=== PATIENT | female | born 1955 | race Caucasian/White ===

== ENCOUNTER 2017-06-09 18:19 | Emergency (ER) | payer OTHER ==
--- NOTE | 2017-06-09 22:17 | DIAGNOSTIC IMAGING REPORT ---
PROCEDURE: XR CHEST 1 VIEW INDICATION: CHEST PAIN TECHNIQUE: Portable AP view (2010 hours). COMPARISON: None. FINDINGS: Mild right basilar subsegmental atelectasis (findings accentuated due to suboptimal inspiration). Left lung is clear. Heart and mediastinum are normal. Thorax is normal. IMPRESSION: 1. Allowing for suboptimal inspiration, there is mild right basilar subsegmental atelectasis. 2. Otherwise negative chest.
--- NOTE | 2017-06-09 22:19 | DIAGNOSTIC IMAGING REPORT ---
PROCEDURE: US ABDOMEN ULTRASOUND-LIMITED INDICATION: RUQ PAIN TECHNIQUE: Burns scale and color Doppler sonographic images of the abdomen were obtained. COMPARISON: Compared to abdominal ultrasound 05/18/2016. FINDINGS: Gallbladder and common duct are normal (6 mm). No evidence of gallstones. Portions of the liver, pancreas, aorta, inferior vena cava, and right kidney are seen, and are normal. IMPRESSION: 1. Negative ultrasound of the gallbladder and right upper quadrant.
--- NOTE | 2017-06-09 22:29 | DIAGNOSTIC IMAGING REPORT ---
PROCEDURE: CT ABD/PELVIS WITH CONTRAST INDICATION: Right abdominal pain. Negative gallbladder ultrasound. History of appendectomy, hysterectomy, and oophorectomy. TECHNIQUE: 75 ml of Isovue 300 were injected intravenously and axial images were obtained of the entire abdomen and pelvis with sagittal and coronal reformations. One half-dose of contrast utilized due to compromised renal status (GFR 44, BUN 23, creatinine 1.3). COMPARISON: Comparison is made to abdominal ultrasound earlier today (06/09/2017). FINDINGS: ABDOMEN: There is marked abnormal heterogeneous enhancement right kidney. Right kidney is mildly prominent (12.0 cm), but there is no evidence of hydronephrosis. Left kidney is of normal size (10.7 cm) with multiple parapelvic cyst. No evidence of hydronephrosis. Gallbladder, liver, spleen (11.4 cm), pancreas, are normal. Mild calcified atheromatous changes of the aorta. Bowel pattern is normal. Mild levoscoliosis with moderate to marked degenerative changes of the lower lumbar spine. Mild volume loss at the lung bases PELVIS: Status post hysterectomy. Trace free fluid the pelvis. Mild sigmoid diverticulosis, but no evidence of diverticulitis. IMPRESSION: 1. Marked abnormal heterogeneous enhancement right kidney compatible with pyelonephritis. 2. Status post hysterectomy. 3. Mild levoscoliosis and moderate to marked degenerative changes of the lower lumbar spine. 4. Trace free fluid the pelvis. 5. Mild sigmoid diverticulosis, but no evidence of diverticulitis. 6. Findings discussed with Dr. Dane Boggs. All CT scans at this facility use dose modulation, iterative reconstruction, and/or weight-based dosing when appropriate to reduce radiation dose to as low as reasonably achievable.
--- NOTE | 2017-06-09 23:07 | ED NURSING NOTES ---
Clinical Report - Nurses [address] [place] [place] [address] 06/09/2017 18:20 [id number] Triage time 18:22. Acuity: LEVEL 3. Chief Complaint: CHEST PAIN. Alert. No acute distress. PATRICIA COMA SCORE: King Coma Scale: 15- eyes open spontaneously (4); best verbal response- oriented x 4 (5); best motor response- obeys commands (6). --18:40 Estefany Bowling R.N. 18:22 06/09/17. BP: 147/74. HR: 87. RR: 18. O2 saturation: 97% on room air. Temp: 98.2 F (oral). Pain level now: 8/10. --18:40 Estefany Bowling R.N. Weight: 84.3 kg stated. Height/Length: 64 inches Per Patient. BMI: 31.9. --18:31 Estefany Bowling R.N. Medications Albuterol Sulfate HFA Inhalation (Aerosol Solution 108 (90 Base) mcg/act), as needed. --18:33 Estefany Bowling R.N. Tessalon Perles Oral (Capsule 100 mg), 3x a day as needed. --18:34 Estefany Bowling R.N. Budesonide ER Oral. --18:34 Estefany Bowling R.N. Budesonide aresol powder 2 puffs, 2x a day. --18:35 Estefany Bowling R.N. Cetirizine HCl Oral 10 mg, daily. --18:36 Estefany Bowling R.N. Cimetidine Oral. --18:36 Estefany Bowling R.N. Fluticasone Propionate Nasal (Suspension 50 mcg/act), daily. --18:37 Estefany Bowling R.N. Naproxen Oral (Tablet 500 mg) 1 tablet, 2x a day as needed. --18:38 Estefany Bowling R.N. Sertraline HCl Oral (Tablet 100 mg) 1 tablet, daily. --18:38 Estefany Bowling R.N. TraZODone HCl Oral (Tablet 100 mg) 0.5-1.5 tabs, at bedtime. --18:39 Estefany Bowling R.N. Triamcinolone Acetonide External, 2x a day. --18:39 Estefany Bowling R.N. Medication/allergy information source: other. --18:40 Estefany Bowling R.N. Allergies Codeine. Morphine and Related. --18:26 Estefany Bowling R.N. History Arrived by private vehicle. Historian: patient. Accompanied by family. Primary physician (Renee). ( has apt on Monday). Onset. (about 1 week). Describes the quality as (intermittent, "just started on the way up here"). Relates location as in the central chest area and epigastric area. Notes pain level as 5/10 on arrival. Provoking / relieving factors: not worsened by anything. Relieved by nothing. ( has been vomiting for a week). The patient has had nausea and vomiting. No difficulty breathing or sweating episodes. SOCIAL HX: Never smoker. Occasional alcohol use. No drug use. LEARNING NEEDS ASSESSMENT: The learning needs assessment revealed no barriers. FALL RISK ASSESSMENT: Fall risk assessment completed. Risk factors identified include patient impairment of mobility. Fall interventions initiated. Patient placed on stretcher. Side rails up x2. Brakes on Bed in low position. FUNCTIONAL ASSESSMENT: Functional assessment performed: requires assistance with the activities of daily living. --18:40 Estefany Bowling R.N. PROBLEMS: Asthma. Allergic Rhinitis. --18:27 Estefany Bowling R.N. Labrynthitis. --18:32 Estefany Bowling R.N. ADDITIONAL SURGERIES: Appendectomy. Back Surgery. --18:28 Estefany Bowling R.N. Carpal Tunnel Surgery. Eye. --18:30 Estefany Bowling R.N. Hysterectomy. Oophorectomy. --23:17 Jose Alberto Mendoza R.N. Assessment GENERAL / NEURO / PSYCH: Alert. Oriented X 4. Appears in no acute distress. Patient appears calm and cooperative. RESPIRATORY: Respirations not labored. SKIN: Skin is warm and dry. --18:40 Estefany Bowling R.N. Interventions ID and allergy band on patient. To treatment room. --18:40 Estefany Bowling R.N. PHYSICAL ASSESSMENT 18:44 06/09/17. To room via wheelchair. Patient gowned. GENERAL / NEURO / PSYCH: Alert. Oriented X 4. Appears in no acute distress. RESPIRATORY: Respirations not labored. CVS: Cardiac rhythm: sinus rhythm. SKIN: Skin is warm and dry. --18:44 Estefany Bowling R.N. NURSING PROGRESS NOTES EKG time: (1827). EKG was ordered, performed by a tech and shown to the ED physician. --18:43 Shahla Portillo 18:44 06/09/17. night monitor, pulse oximeter and NIBP monitor placed on patient. Patient gowned. Head of bed elevated. Call light placed in reach. Side rails up x 1. Bed placed in lowest position. Brakes of bed on. --18:44 Estefany Bowling R.N. 19:20 06/09/2017 Site #1 started via IV in the right forearm with an 20g angiocath, with aseptic technique and good blood return; one attempt. Blood drawn: rainbow set. Labeled in the presence of the patient and sent to the lab. Saline lock flushed with 10 mL saline. --19:20 Estefany Bowling R.N. 19:20 06/09/17. The patient is calm. Overall patient status is the same- she states feels the same (skin is clammy). RESPIRATORY: No respiratory distress. CVS: Cardiac rhythm: sinus rhythm. SKIN: Skin is warm. --19:20 Estefany Bowling R.N. 19:21 06/09/17. Care transferred and report given (Jose Alberto RIVERA). --19:21 Estefany Bowling R.N. 19:39 06/09/2017 Zofran (Ondansetron HCl) IVP 4 mg given over 2 minute(s) via site #1. Allergies verified and confirmed 5 rights. IV patency established. IV site checked: no pain, redness, or swelling. IV flushed thoroughly pre- and post-medication administration. --19:42 Jose Alberto Mendoza R.N. 19:43 06/09/17. BP: 119/77. HR: 75. RR: 16. O2 saturation: 97% on room air. --19:43 Jose Alberto Mendoza R.N. Cardiac rhythm: normal sinus rhythm. The patient is calm and resting quietly. RESPIRATORY: No respiratory distress. SKIN: Skin is warm and dry. Skin color within normal limits. --19:43 Jose Alberto Mendoza R.N. 19:55. Patient ID band checked for patient name and birthdate: patient confirmed. Clean catch urine collected with return of yellow-colored florina-colored cloudy urine; sample sent to lab for urinalysis. Specimen labeled in the presence of the patient. --20:01 Jose Alberto Mendoza R.N. 20:07. Portable chest x-ray performed. --20:07 Jose Alberto Mendoza R.N. Patient ID band checked for patient name and birthdate: patient confirmed. Blood samples drawn from the right forearm peripheral IV site with syringe by nurse ; labeled in presence of the patient and sent to lab: blood culture (1st set). Initial blood discarded and additional blood sent to lab. Line flushed with 10 mL normal saline post blood draw. --20:20 Jose Alberto Mendoza R.N. 20:20 06/09/2017 Started bag #1 1000 mL IV Fluids IV NS (Saline); at 150 mL/hr over 4 hour(s) via site #1 via IV pump. --20:20 Jose Alberto Mendoza R.N. 21:29. Patient transported to [place] by stretcher with tech. --21:40 Jose Alberto Mendoza R.N. 21:59 06/09/2017 Started 2 gm of Rocephin (CefTRIAXone Sodium) IVPB in bag #1 50 mL; at 150 mL/hr over 20 minute(s) via site #1 via IV pump. Allergies verified and confirmed 5 rights. IV patency established. IV site checked: no pain, redness, or swelling. IV flushed thoroughly pre- and post-medication administration. --21:59 Jose Alberto Mendoza R.N. 21:56. Patient returned from [place] by stretcher with tech. --21:59 Jose Alberto Mendoza R.N. 22:21 06/09/2017 Rocephin IVPB Discontinued: bag #1 infused. Total amount infused: 50 mL. IV patency established. IV site checked: no pain, redness, or swelling. IV flushed thoroughly. --23:10 Jose Alberto Mendoza R.N. 23:34. The patient is calm and resting quietly. RESPIRATORY: No respiratory distress. SKIN: Skin is warm and dry. Skin color within normal limits. --23:43 Jose Alberto Mendoza R.N. DISPOSITION / DISCHARGE 23:28 06/09/2017 IV Fluids IV NS Discontinued: bag #1 STOPPED upon discharge. Total amount infused: 400 mL. IV patency established. IV site checked: no pain, redness, or swelling. IV flushed thoroughly. --23:42 Jose Alberto Mendoza R.N. 23:31 06/09/2017 Site #1 removed upon discharge. Catheter intact. Bandage applied. --23:42 Jose Alberto Mendoza R.N. Departure time: 23:35. Condition at departure: stable. No learning barriers present. Discharge instructions provided and reviewed with the patient and family. Reviewed medication(s) side effects, precautions, dosing and course information. Prescription(s) given to the patient. Patient and family verbalized understanding. Written instructions provided in [facility]. The patient was discharged home and accompanied by family. She left the Emergency Department ambulatory and via private vehicle. Family member driving. FALL RISK ASSESSMENT: Fall risk assessment completed. No fall risk identified. --23:43 Jose Alberto Mendoza R.N. 23:10 06/09/17. BP: 114/74. HR: 71. RR: 16. O2 saturation: 96% on room air. Pain level now: 01/27. --23:43 Jose Alberto Mendoza R.N. Locked/Released at 06/10/2017 0:02 by Jose Alberto Mendoza R.N.
--- NOTE | 2017-06-09 23:07 | ED CLINICAL REPORT ---
Clinical Report - Physicians/Mid Levels [facility] [address] [place] [address] 06/09/2017 18:20 [id number] Time Seen: 18:54 Jun 09 2017. Arrived- By private vehicle. Historian- patient. HISTORY OF PRESENT ILLNESS Chief Complaint: UPPER ABDOMINAL PAIN and INDIGESTION vomiting. At its maximum, severity described as moderate. When seen in the E.D., it was gone. Modifying factors. Not worsened by anything. Not relieved by anything. This started 19:03 Jun 09 2017; Onset. (about 1 week). Describes the quality as (intermittent, "just started on the way up here"). Relates location as in the central chest area and epigastric area. Notes pain level as 5/10 on arrival. Provoking / relieving factors: not worsened by anything. Relieved by nothing. ( has been vomiting for a week). The patient has had nausea and vomiting. No difficulty breathing or sweating episodes. and is now gone. Onset during rest; Was riding in the car to the ER and felt it was an anxiety attack. It is described as burning and it is described as located in the central chest area. The patient has had nausea and vomiting. No difficulty breathing or diaphoresis. Similar symptoms previously: As bad. Diagnosis: anxiety. Recent medical care: Not recently seen/assessed. REVIEW OF SYSTEMS No fever, chills, cough, pedal edema or calf pain. Had rigors at night twice this past week. Does not know if she had a fever. Has had vomiting for the past week with intermittent right upper quadrant pain. She has had back pain associated with this as well. Son states that she is to come progressively weaker due to poor by mouth intake and cannot manage ambulating by herself or trying to go up the stairs. She's developed significant weakness in this time. Patient has had intermittent diarrhea and constipation associated with her irritable bowel syndrome. No blood in the stool no blood in the emesis. She has had her appendix out but still does have her gallbladder. Denies any problems with her gallbladder in the past. Said no other abdominal procedures that she can remember. All systems otherwise negative, except as recorded above. PAST HISTORY Asthma. Allergic Rhinitis. Labrynthitis. . ADDITIONAL SURGERIES: Appendectomy. Back Surgery. -. Carpal Tunnel Surgery. Eye. Medications: Triamcinolone Acetonide External, 2x a day. TraZODone HCl Oral (Tablet 100 mg) 0.5-1.5 tabs, at bedtime. Sertraline HCl Oral (Tablet 100 mg) 1 tablet, daily. Naproxen Oral (Tablet 500 mg) 1 tablet, 2x a day as needed. Fluticasone Propionate Nasal (Suspension 50 mcg/act), daily. Cimetidine Oral. Cetirizine HCl Oral 10 mg, daily. Budesonide aresol powder 2 puffs, 2x a day. Budesonide ER Oral. Tessalon Perles Oral (Capsule 100 mg), 3x a day as needed. Albuterol Sulfate HFA Inhalation (Aerosol Solution 108 (90 Base) mcg/act), as needed. Allergies: Codeine. Morphine and Related. SOCIAL HISTORY Never smoker. Occasional alcohol use. No drug use. ADDITIONAL NOTES The nursing notes have been reviewed. PHYSICAL EXAM Vital Signs: 06/09/2017 18:22 BP: 147/74. HR: 87. RR: 18. O2 saturation: 97%. Temp: 98.2 F. Pain level now: 8/10. Appearance: Alert. Anxious. Patient in mild distress. Eyes: Pupils equal, round and reactive to light. Eyes normal inspection. ENT: Ears normal. Nose normal. Dry mucous membranes present. Neck: Normal inspection. CVS: Normal heart rate and rhythm. 2/6 mid systolic murmur. Heart sounds normal. Pulses normal. Respiratory: No respiratory distress. Breath sounds normal. Chest nontender. Abdomen: Soft. Moderate tenderness in the right upper quadrant and right side of the abdomen. Abnormal bowel sounds: diminished. Back: Normal external inspection. No CVA tenderness. Skin: Skin warm. Normal skin color. No rash. Extremities: Extremities exhibit normal ROM. No lower extremity edema. Neuro: Oriented X 3. No motor deficit. No sensory deficit. LABS, X-RAYS, AND EKG EKG: Normal sinus rhythm. Normal P waves. Normal JUSTIN. Normal QRS complex. Normal axis. Normal ST and T waves. Prior EKG unavailable. The study has been interpreted contemporaneously. The study has been independently viewed by me. The EKG appears to be a good tracing. Abdominal CT: 1. Marked abnormal heterogeneous enhancement right kidney compatible with pyelonephritis. 2. Status post hysterectomy. 3. Mild levoscoliosis and moderate to marked degenerative changes of the lower lumbar spine. 4. Trace free fluid the pelvis. 5. Mild sigmoid diverticulosis, but no evidence of diverticulitis. Abdominal CT performed with IV contrast. The study was interpreted by the radiologist and discussed with the radiologist. Abdominal Sonogram: Normal study. Laboratory Tests: UA-Culture if indicated: (JIM: 06/09/2017 19:55) ( MsgRcvd 06/09/2017 20:12) Final results Test Result Flag Units (Reference) URINE COLOR YELLOW URINE APPEARANCE SL CLOUDY URINE GLUCOSE NEGATIVE (NEGATIVE) URINE BILIRUBIN ICTOTEST NEGATIVE (NEGATIVE) URINE KETONE NEGATIVE (NEGATIVE) URINE SPECIFIC GRAVITY 1.020 (1.010-1.030) URINE PH 5.5 (5.0-8.0) URINE PROTEIN 1+ (NEGATIVE) URINE UROBILINOGEN 0.2 EU/dL (0.2-1.0) URINE NITRITE POSITIVE (NEGATIVE) URINE BLOOD 2+ (NEGATIVE) URINE LEUK ESTERASE POSITIVE (NEGATIVE) URINE RBC NONE SEEN rbc/hpf (0-1) URINE WBC >100 wbc/hpf (0-1) URINE EPITHELIAL CELLS 3-5 EPI/hpf (0-5) URINE BACTERIA MANY (4+) (NONE SEEN) URINE COMMENT CULTURE INDICATED URINE CULTURES ARE SET-UP BASED ON THE FOLLOWING CRITERIA:POSITIVE NITRITEPOSITIVE LEUKOCYTE ESTERASEGREATER THAN 10 WHITE BLOOD CELLSMODERATE (2+) OR GREATER BACTERIA CBC w Diff: (JIM: 06/09/2017 18:50) ( [facility] Final results Test Result Flag Units (Reference) WHITE BLOOD COUNT 8.2 K/uL (4.5-11.5) RED BLOOD COUNT 4.38 M/uL (4.00-5.20) HEMOGLOBIN 13.1 gm/dL (12.0-16.0) HEMATOCRIT 38.5 % (36.0-46.0) MEAN CELL VOLUME 88 fL (80-100) MEAN CORPUSCULAR HGB 30 pg (26-34) MEAN CORPUSCULAR HGB CONC 34 g/dL (31-37) RED CELL DISTRIBUTION WIDTH 14.2 % (11.6-14.8) PLATELET COUNT 185 K/uL (150-400) NEUTROPHIL % 81.4 H % (50-75) LYMPH % 10.5 L % (25-40) MONO % 7.6 % (3-14) EOSINOPHIL % 0.5 % (0-4) BASOPHIL % 0 % (0-2) CHEM 13 PANEL: (JIM: 06/09/2017 18:50) ( MsgRcvd 06/09/2017 19:56) Final results Test Result Flag Units (Reference) GLUCOSE 90 mg/dL (70-110) BUN 23 H mg/dL (7-18) CREATININE 1.3 mg/dL (0.6-1.3) Estimated GFR 44.11 mL/min Estimated GFR- 53.46 mL/min Note: Persistent reduction over 3 months in eGFR<60 mL/min/1.73 m2 defines CKD. Patients with eGFR values>=60 mL/min/1.73 m2 may also have CKD if evidence ofpersistent proteinuria. Additional information may be foundat www.kidney.org. SODIUM 141 mmol/L (136-145) POTASSIUM 3.3 L mmol/L (3.5-5.1) CHLORIDE 105 mmol/L (98-107) CARBON DIOXIDE 24 mmol/L (21-32) CALCIUM 10.3 H mg/dL (8.5-10.1) TOTAL PROTEIN 6.7 g/dL (6.4-8.2) ALBUMIN 2.6 L g/dL (3.3-5.0) BILIRUBIN, TOTAL 1.0 mg/dL (0.0-1.0) ALKALINE PHOSPHATASE 219 H U/L (46-116) AST (SGOT) 40 H U/L (15-37) ALT (SGPT) 46 U/L (12-78) MAGNESIUM 2.0 mg/dL (1.8-2.4) CPK 20 L U/L (24-260) TROPONIN I <0.05 L ng/mL (0.00-1.5) TROPONIN REFERENCE RANGE:<0.1 NEGATIVE0.1-1.5 INDETERMINANT>1.5 POSITIVE . PROGRESS AND PROCEDURES Course of Care: Heplock Zofran 4 mg IV Patient is stable. Symptoms better. 21:51 06/09/17. US negative CT pending Discussed with Dr Boggs who will assume care due to change of shift. Disposition: Discharged home in good and improved condition. Condition: good. CLINICAL IMPRESSION Acute pyelonephritis INSTRUCTIONS Your Current Medications: CONTINUE TAKING THE FOLLOWING MEDICATIONS: Albuterol Sulfate HFA Inhalation : Aerosol Solution 108 (90 Base) mcg/act, prn. Budesonide aresol powder* : 2 puffs 2x a day. Budesonide ER Oral. Cetirizine HCl Oral : 10 mg daily. Cimetidine Oral. Fluticasone Propionate Nasal : Suspension 50 mcg/act, daily. Naproxen Oral : Tablet 500 mg, 1 tablet 2x a day, prn. Sertraline HCl Oral : Tablet 100 mg, 1 tablet daily. Tessalon Perles Oral : Capsule 100 mg, 3x a day, prn. TraZODone HCl Oral : Tablet 100 mg, 0.5-1.5 tabs at bedtime. Triamcinolone Acetonide External : 2x a day. Prescription Medications: Zofran (orally disintegrating tablets) 4 mg: take 1 orally every 6 hours as needed for nausea and vomiting. Dispense ten (10). Substitution is permissible. Suprax 400 mg: take 1 tab orally every day. No refills. Substitution is permissible. (for 14 days) Follow-up: Follow up with your doctor in about three days. Call for an appointment. Screening today revealed the patient's blood pressure to be in the normal range. (Electronically signed by Dane Boggs Dr. 06/10/2017 2:25)
--- NOTE | 2017-06-09 23:07 | ED ORDER SUMMARY ---
..... Patient: CADY COOMBS OrderSheet [facility] VisitID: [id number] [place] [address] 61y, F Registration Date/Time: 06/09/2017 ORDER SHEET Weight: 84.3 kg (stated) Allergies: Codeine, Morphine and Related GENERAL ORDERS: Blood Culture (No) (N/A) Urgent (19:37 06/09/2017 Sylvia DURAN) (Ack 19:39 [facility] Nurse) (20:20 JQuivey R.N.) Chest 1V Urgent (19:37 06/09/2017 Sylvia DURAN) (Ack 19:39 [facility] Nurse) (20:20 JQuivey R.N.) T[employer] Printer [employer] Tagger (Continuous) (19:38 06/09/2017 Sylvia DURAN) (Ack 19:39 [facility]) (19:41 JQuivey R.N.) Cardiac Panel Stat (19:38 06/09/2017 Sylvia DURAN) (Ack 19:39 [facility]) (19:42 JQuivey R.N.) UA-Culture if indicated Urgent (19:38 06/09/2017 Sylvia DURAN) (Ack 19:39 [facility]) (20:07 JQuivey R.N.) EKG - ER Stat (19:38 06/09/2017 Sylvia DURAN) (Ack 19:39 [facility] Nurse) (19:42 JQuivey R.N.) (19:42 [facility] Nurse) Pulse oximeter (19:38 06/09/2017 Sylvia DURAN) (Ack 19:39 [facility]) (19:41 JQuivey R.N.) US Abdomen Limited (Yes) Urgent (19:51 06/09/2017 Sylvia DURAN) (Ack 19:56 [facility]) (21:50 JQuivey R.N.) (21:50 [facility] Nurse) CT Abd/Pel w Cont (No) (pending) Urgent (19:51 06/09/2017 Sylvia DURAN) (Ack 19:56 [facility]) (21:58 JQuivey R.N.) Lactate, Serum Urgent (20:53 06/09/2017 Sylvia DURAN) (Ack 21:00 [facility] Nurse) (21:58 JQuivey R.N.) MEDICATION ORDERS: IV FLUIDS: Zofran IV 4 mg (NOW) (19:37 06/09/2017 Sylvia DURAN) (Ack 19:37 JQuivey R.N.) (19:42 JQuivey R.N.) IV Saline Lock (19:38 06/09/2017 Sylvia DURAN) (19:42 JQuivegabi R.N.) IV NS : initial bolus none -, then 150 mL/hr for 4h (NOW); Routine (20:03 06/09/2017 Sylvia DURAN) (20:20 JQuivey R.N.) Rocephin IV 2 gm/50mL (NOW) (20:53 06/09/2017 Sylvia DURAN) (Ack 21:35 JQuivey R.N.) (21:59 JQuivey R.N.) ORDER SHEET NOTES: [Electronically signed by Jose Alberto Mendoza R.N. (00:02 06/10/2017)] [Electronically signed by Dane Boggs Dr. (02:25 06/10/2017)] [Electronically locked/signed by Jose Alberto Mendoza R.N. (00:02 06/10/2017)]
--- NOTE | 2017-06-09 23:07 | ED NURSING NOTES ---
Clinical Report - Nurses [address] [place] [address] 06/09/2017 18:20 [id number] Triage time 18:22. Acuity: LEVEL 3. Chief Complaint: CHEST PAIN. Alert. No acute distress. PATRICIA COMA SCORE: [place] Coma Scale: 15- eyes open spontaneously (4); best verbal response- oriented x 4 (5); best motor response- obeys commands (6). --18:40 Estefany Bowling R.N. 18:22 06/09/17. BP: 147/74. HR: 87. RR: 18. O2 saturation: 97% on room air. Temp: 98.2 F (oral). Pain level now: 8/10. --18:40 Estefany Bowling R.N. Weight: 84.3 kg stated. Height/Length: 64 inches Per Patient. BMI: 31.9. --18:31 Estefany Bowling R.N. Medications Albuterol Sulfate HFA Inhalation (Aerosol Solution 108 (90 Base) mcg/act), as needed. --18:33 Estefany Bowling R.N. Tessalon Perles Oral (Capsule 100 mg), 3x a day as needed. --18:34 Estefany Bowling R.N. Budesonide ER Oral. --18:34 Estefany Bowling R.N. Budesonide aresol powder 2 puffs, 2x a day. --18:35 Estefany Bowling R.N. Cetirizine HCl Oral 10 mg, daily. --18:36 Estefany Bowling R.N. Cimetidine Oral. --18:36 Estefany Bowling R.N. Fluticasone Propionate Nasal (Suspension 50 mcg/act), daily. --18:37 Estefany Bowling R.N. Naproxen Oral (Tablet 500 mg) 1 tablet, 2x a day as needed. --18:38 Estefany Bowling R.N. Sertraline HCl Oral (Tablet 100 mg) 1 tablet, daily. --18:38 Estefany Bowling R.N. TraZODone HCl Oral (Tablet 100 mg) 0.5-1.5 tabs, at bedtime. --18:39 Estefany Bowling R.N. Triamcinolone Acetonide External, 2x a day. --18:39 Estefany Bowling R.N. Medication/allergy information source: other. --18:40 Esetfany Bowling R.N. Allergies Codeine. Morphine and Related. --18:26 Estefany Bowling R.N. History Arrived by private vehicle. Historian: patient. Accompanied by family. Primary physician (Renee). ( has apt on Monday). Onset. (about 1 week). Describes the quality as (intermittent, "just started on the way up here"). Relates location as in the central chest area and epigastric area. Notes pain level as 5/10 on arrival. Provoking / relieving factors: not worsened by anything. Relieved by nothing. ( has been vomiting for a week). The patient has had nausea and vomiting. No difficulty breathing or sweating episodes. SOCIAL HX: Never smoker. Occasional alcohol use. No drug use. LEARNING NEEDS ASSESSMENT: The learning needs assessment revealed no barriers. FALL RISK ASSESSMENT: Fall risk assessment completed. Risk factors identified include patient impairment of mobility. Fall interventions initiated. Patient placed on stretcher. Side rails up x2. Brakes on Bed in low position. FUNCTIONAL ASSESSMENT: Functional assessment performed: requires assistance with the activities of daily living. --18:40 Estefany Bowling R.N. PROBLEMS: Asthma. Allergic Rhinitis. --18:27 Estefany Bowling R.N. Labrynthitis. --18:32 Estefany Bowling R.N. ADDITIONAL SURGERIES: Appendectomy. Back Surgery. --18:28 Estefany Bowling R.N. Carpal Tunnel Surgery. Eye. --18:30 Estefany Bowling R.N. Hysterectomy. Oophorectomy. --23:17 Jose Alberto Mendoza R.N. Assessment GENERAL / NEURO / PSYCH: Alert. Oriented X 4. Appears in no acute distress. Patient appears calm and cooperative. RESPIRATORY: Respirations not labored. SKIN: Skin is warm and dry. --18:40 Estefany Bowling R.N. Interventions ID and allergy band on patient. To treatment room. --18:40 Estefany Bowling R.N. PHYSICAL ASSESSMENT 18:44 06/09/17. To room via wheelchair. Patient gowned. GENERAL / NEURO / PSYCH: Alert. Oriented X 4. Appears in no acute distress. RESPIRATORY: Respirations not labored. CVS: Cardiac rhythm: sinus rhythm. SKIN: Skin is warm and dry. --18:44 Estefany Bowling R.N. NURSING PROGRESS NOTES EKG time: (1827). EKG was ordered, performed by a tech and shown to the ED physician. --18:43 Shahla Portillo 18:44 06/09/17. color television console monitor, pulse oximeter and NIBP monitor placed on patient. Patient gowned. Head of bed elevated. Call light placed in reach. Side rails up x 1. Bed placed in lowest position. Brakes of bed on. --18:44 Estefany Bowling R.N. 19:20 06/09/2017 Site #1 started via IV in the right forearm with an 20g angiocath, with aseptic technique and good blood return; one attempt. Blood drawn: rainbow set. Labeled in the presence of the patient and sent to the lab. Saline lock flushed with 10 mL saline. --19:20 Estefany Bowilng R.N. 19:20 06/09/17. The patient is calm. Overall patient status is the same- she states feels the same (skin is clammy). RESPIRATORY: No respiratory distress. CVS: Cardiac rhythm: sinus rhythm. SKIN: Skin is warm. --19:20 Estefany Bowling R.N. 19:21 06/09/17. Care transferred and report given (Jose Alberto RIVERA). --19:21 Estefany Bowling R.N. 19:39 06/09/2017 Zofran (Ondansetron HCl) IVP 4 mg given over 2 minute(s) via site #1. Allergies verified and confirmed 5 rights. IV patency established. IV site checked: no pain, redness, or swelling. IV flushed thoroughly pre- and post-medication administration. --19:42 Jose Alberto Mendoza R.N. 19:43 06/09/17. BP: 119/77. HR: 75. RR: 16. O2 saturation: 97% on room air. --19:43 Jose Alberto Mendoza R.N. Cardiac rhythm: normal sinus rhythm. The patient is calm and resting quietly. RESPIRATORY: No respiratory distress. SKIN: Skin is warm and dry. Skin color within normal limits. --19:43 Jose Alberto Mendoza R.N. 19:55. Patient ID band checked for patient name and birthdate: patient confirmed. Clean catch urine collected with return of yellow-colored florina-colored cloudy urine; sample sent to lab for urinalysis. Specimen labeled in the presence of the patient. --20:01 Jose Alberto Mendoza R.N. 20:07. Portable chest x-ray performed. --20:07 Jose Alberto Mendoza R.N. Patient ID band checked for patient name and birthdate: patient confirmed. Blood samples drawn from the right forearm peripheral IV site with syringe by nurse ; labeled in presence of the patient and sent to lab: blood culture (1st set). Initial blood discarded and additional blood sent to lab. Line flushed with 10 mL normal saline post blood draw. --20:20 Jose Alberto Mendoza R.N. 20:20 06/09/2017 Started bag #1 1000 mL IV Fluids IV NS (Saline); at 150 mL/hr over 4 hour(s) via site #1 via IV pump. --20:20 Jose Alberto Mendoza R.N. 21:29. Patient transported to DC by stretcher with tech. --21:40 Jose Alberto Mendoza R.N. 21:59 06/09/2017 Started 2 gm of Rocephin (CefTRIAXone Sodium) IVPB in bag #1 50 mL; at 150 mL/hr over 20 minute(s) via site #1 via IV pump. Allergies verified and confirmed 5 rights. IV patency established. IV site checked: no pain, redness, or swelling. IV flushed thoroughly pre- and post-medication administration. --21:59 Jose Alberto Mendoza R.N. 21:56. Patient returned from DC by stretcher with tech. --21:59 Jose Alberto Mendoza R.N. 22:21 06/09/2017 Rocephin IVPB Discontinued: bag #1 infused. Total amount infused: 50 mL. IV patency established. IV site checked: no pain, redness, or swelling. IV flushed thoroughly. --23:10 Jose Alberto Mendoza R.N. 23:34. The patient is calm and resting quietly. RESPIRATORY: No respiratory distress. SKIN: Skin is warm and dry. Skin color within normal limits. --23:43 Jose Alberto Mendoza R.N. DISPOSITION / DISCHARGE 23:28 06/09/2017 IV Fluids IV NS Discontinued: bag #1 STOPPED upon discharge. Total amount infused: 400 mL. IV patency established. IV site checked: no pain, redness, or swelling. IV flushed thoroughly. --23:42 Jose Alberto Mendoza R.N. 23:31 06/09/2017 Site #1 removed upon discharge. Catheter intact. Bandage applied. --23:42 Jose Alberto Mendoza R.N. Departure time: 23:35. Condition at departure: stable. No learning barriers present. Discharge instructions provided and reviewed with the patient and family. Reviewed medication(s) side effects, precautions, dosing and course information. Prescription(s) given to the patient. Patient and family verbalized understanding. Written instructions provided in [place]. The patient was discharged home and accompanied by family. She left the Emergency Department ambulatory and via private vehicle. Family member driving. FALL RISK ASSESSMENT: Fall risk assessment completed. No fall risk identified. --23:43 Jose Alberto Mendoza R.N. 23:10 06/09/17. BP: 114/74. HR: 71. RR: 16. O2 saturation: 96% on room air. Pain level now: 01/27. --23:43 Jose Alberto Mendoza R.N. Locked/Released at 06/10/2017 0:02 by Jose Alberto Mendoza R.N.
--- NOTE | 2017-06-09 23:07 | ED ORDER SUMMARY ---
..... Patient: CADY COOMBS OrderSheet [facility] VisitID: [id number] [place] [address] 61y, F Registration Date/Time: 06/09/2017 ORDER SHEET Weight: 84.3 kg (stated) Allergies: Codeine, Morphine and Related GENERAL ORDERS: Blood Culture (No) (N/A) Urgent (19:37 06/09/2017 Sylvia DURAN) (Ack 19:39 [facility] Wire Preparation Machine Tender) (20:20 JQuivey R.N.) Chest 1V Urgent (19:37 06/09/2017 Sylvia DURAN) (Ack 19:39 [facility] Wire Preparation Machine Tender) (20:20 JQuivey R.N.) Hose Operator (Continuous) (19:38 06/09/2017 Sylvia DURAN) (Ack 19:39 [facility] Wire Preparation Machine Tender) (19:41 JQuivey R.N.) Cardiac Panel Stat (19:38 06/09/2017 Sylvia DURAN) (Ack 19:39 [facility] Wire Preparation Machine Tender) (19:42 JQuivey R.N.) UA-Culture if indicated Urgent (19:38 06/09/2017 Sylvia DURAN) (Ack 19:39 [facility] Wire Preparation Machine Tender) (20:07 JQuivey R.N.) EKG - ER Stat (19:38 06/09/2017 Sylvia DURAN) (Ack 19:39 [facility] Wire Preparation Machine Tender) (19:42 JQuivey R.N.) (19:42 [facility] ER Wire Preparation Machine Tender) Pulse oximeter (19:38 06/09/2017 Sylvia DURAN) (Ack 19:39 [facility] Wire Preparation Machine Tender) (19:41 JQuivey R.N.) US Abdomen Limited (Yes) Urgent (19:51 06/09/2017 Sylvia DURAN) (Ack 19:56 [facility] Wire Preparation Machine Tender) (21:50 JQuivey R.N.) (21:50 [facility] ER Wire Preparation Machine Tender) CT Abd/Pel w Cont (No) (pending) Urgent (19:51 06/09/2017 Sylvia DURAN) (Ack 19:56 [facility] Wire Preparation Machine Tender) (21:58 JQuivey R.N.) Lactate, Serum Urgent (20:53 06/09/2017 Sylvia DURAN) (Ack 21:00 [facility] Wire Preparation Machine Tender) (21:58 JQuivey R.N.) MEDICATION ORDERS: IV FLUIDS: Zofran IV 4 mg (NOW) (19:37 06/09/2017 Sylvia DURAN) (Ack 19:37 JQuivey R.N.) (19:42 JQuivey R.N.) IV Saline Lock (19:38 06/09/2017 Sylvia DURAN) (19:42 JQuivegabi R.N.) IV NS : initial bolus none -, then 150 mL/hr for 4h (NOW); Routine (20:03 06/09/2017 Sylvia DURAN) (20:20 JQuivey R.N.) Rocephin IV 2 gm/50mL (NOW) (20:53 06/09/2017 Sylvia DURAN) (Ack 21:35 JQuivey R.N.) (21:59 JQuivey R.N.) ORDER SHEET NOTES: [Electronically signed by Jose Alberto Mendoza R.N. (00:02 06/10/2017)] [Electronically signed by Dane Boggs Dr. (02:25 06/10/2017)] [Electronically locked/signed by Jose Alberto Mendoza R.N. (00:02 06/10/2017)]
--- NOTE | 2017-06-10 02:25 | ED MED RECONCILIATION SUMMARY ---
Patient: CADY COOMBS Medication Reconciliation Report [facility] VisitID: [id number] [place] [address] 61y, F Registration Date/Time: 06/09/2017 Weight: 84.3 kg Height/Length: 64 in. BMI: 31.9 ALLERGIES: Codeine, Morphine and Related The patient's Home Medications are listed below: CONTINUE TAKING THE FOLLOWING MEDICATIONS: Albuterol Sulfate HFA Inhalation (108 (90 Base) mcg/act) Budesonide aresol powder 2 puffs, 2x a day Budesonide ER Oral Cetirizine HCl Oral 10 mg, daily Cimetidine Oral Fluticasone Propionate Nasal (50 mcg/act), daily Naproxen Oral (500 mg) 1 tablet, 2x a day Sertraline HCl Oral (100 mg) 1 tablet, daily Tessalon Perles Oral (100 mg), 3x a day TraZODone HCl Oral (100 mg) 0.5-1.5 tabs, at bedtime Triamcinolone Acetonide External, 2x a day The source(s) of the original Home Medication information: other The following Medications were given to the patient in the Emergency Department: Zofran [IVP] IVP 4 mg, administered: 06/09/2017 7:39:00 PM IV NS IV Fluids bolus 0, then 150 mL/hr, administered: 06/09/2017 8:20:00 PM Rocephin [IVPB] IVPB bolus 0, then 2 gm 150 mL/hr, administered: 06/09/2017 9:59:00 PM The following Medications were prescribed to the patient: Zofran (orally disintegrating tablets) 4 mg: take 1 orally every 6 hours as needed for nausea and vomiting. Dispense ten (10). Substitution is permissible. -- Dane Boggs Dr. Suprax 400 mg: take 1 tab orally every day. No refills. Substitution is permissible.(for 14 days) -- Dane Boggs Dr.
--- NOTE | 2017-06-10 02:25 | ED DISCHARGE INSTRUCTIONS ---
Patient: CADY COOMBS General Instructions [facility] VisitID: [id number] [place] [address] 61y, F Registration Date/Time: 06/09/2017 Acute pyelonephritis INSTRUCTIONS Your Current Medications: CONTINUE TAKING THE FOLLOWING MEDICATIONS: Albuterol Sulfate HFA Inhalation : Aerosol Solution 108 (90 Base) mcg/act, prn. Budesonide aresol powder* : 2 puffs 2x a day. Budesonide ER Oral. Cetirizine HCl Oral : 10 mg daily. Cimetidine Oral. Fluticasone Propionate Nasal : Suspension 50 mcg/act, daily. Naproxen Oral : Tablet 500 mg, 1 tablet 2x a day, prn. Sertraline HCl Oral : Tablet 100 mg, 1 tablet daily. Tessalon Perles Oral : Capsule 100 mg, 3x a day, prn. TraZODone HCl Oral : Tablet 100 mg, 0.5-1.5 tabs at bedtime. Triamcinolone Acetonide External : 2x a day. Prescription Medications: Zofran (orally disintegrating tablets) 4 mg: take 1 orally every 6 hours as needed for nausea and vomiting. Dispense ten (10). Substitution is permissible. Suprax 400 mg: take 1 tab orally every day. No refills. Substitution is permissible. (for 14 days) Follow-up: Follow up with your doctor in about three days. Call for an appointment. Screening today revealed the patient's blood pressure to be in the normal range. ADDITIONAL INFORMATION Kidney Infection [Adult, Female] An infection of the kidney is also called "pyelonephritis". It usually starts as a bladder infection ("cystitis") which spreads to the kidneys. Pyelonephritis is more serious than a bladder infection. It can cause severe illness if not treated properly. The usual symptoms include an aching pain in the back, side or lower abdomen. Other symptoms may include fever, chills, nausea, vomiting, an urge to urinate and a burning sensation when passing urine. Home Care: Stay home from work or school. Rest in bed until your fever breaks and you are feeling better. Drink lots of fluid (at least 6-8 glasses a day, unless you must restrict fluids for other medical reasons). This will force the medicine into your urinary system and flush the bacteria out of your body. Avoid sexual intercourse until you have finished all of your medicine and your symptoms have gone away. Avoid caffeine, alcohol and spicy foods which may irritate the kidney and bladder. You may use acetaminophen (Tylenol) or ibuprofen (Motrin, Advil) to control pain, unless another pain medicine was prescribed. [NOTE: If you have chronic liver or kidney disease or ever had a stomach ulcer or GI bleeding, talk with your doctor before using these medicines.] Follow Up with your doctor or as advised by our staff for a repeat urine test in 10 days. This will ensure that your infection is fully cleared. [NOTE: If you had an X-ray or CT scan, it will be reviewed by a specialist. You will be notified of any new findings that may affect your care.] Get Prompt Medical Attention if any of the following occur: Fever over 100.4F (38.0C) after 48 hours of treatment No improvement by the third day of treatment Increasing back or abdominal pain Repeated vomiting or inability to take oral medicine Weakness, dizziness or fainting Ondansetron Oral disintegrating tablet What is this medicine? ONDANSETRON (on TATYANA se jared) is used to treat nausea and vomiting caused by chemotherapy. It is also used to prevent or treat nausea and vomiting after surgery. How should I use this medicine? These tablets are made to dissolve in the mouth. Do not try to push the tablet through the foil backing. With dry hands, peel away the foil backing and gently remove the tablet. Place the tablet in the mouth and allow it to dissolve, then swallow. While you may take these tablets with water, it is not necessary to do so. Talk to your manual plate filler regarding the use of this medicine in children. Special care may be needed. What side effects may I notice from receiving this medicine? Side effects that you should report to your doctor or health healthcare financial analyst as soon as possible: allergic reactions like skin rash, itching or hives, swelling of the face, lips, or tongue breathing problems dizziness fast or irregular heartbeat feeling faint or lightheaded, falls fever and chills swelling of the hands and feet tightness in the chest Side effects that usually do not require medical attention (report to your doctor or health healthcare financial analyst if they continue or are bothersome): constipation or diarrhea headache What may interact with this medicine? Do not take this medicine with any of the following medications: -apomorphine -cisapride -dofetilide -dronedarone -pimozide -thioridazine -ziprasidone This medicine may also interact with the following medications: -carbamazepine -phenytoin -rifampicin -tramadol -other medicines that prolong the QT interval (cause an abnormal heart rhythm) What if I miss a dose? If you miss a dose, take it as soon as you can. If it is almost time for your next dose, take only that dose. Do not take double or extra doses. Where should I keep my medicine? Keep out of the reach of children. Store between 2 and 30 degrees C (36 and 86 degrees F). Throw away any unused medicine after the expiration date. What should I tell my health care provider before I take this medicine? They need to know if you have any of these conditions: heart disease history of irregular heartbeat liver disease low levels of magnesium or potassium in the blood an unusual or allergic reaction to ondansetron, granisetron, other medicines, foods, dyes, or preservatives or trying to get breast-feeding What should I watch for while using this medicine? Check with your doctor or health healthcare financial analyst as soon as you can if you have any sign of an allergic reaction. Cefixime Oral tablet What is this medicine? CEFIXIME (sef IX eem) is a cephalosporin antibiotic. It is used to treat certain kinds of bacterial infections. It will not work for colds, flu, or other viral infections. How should I use this medicine? Take this medicine by mouth with a glass of water. Follow the directions on the prescription label. You can take it with or without food. If it upsets your stomach, take it with food. Take your medicine at regular intervals. Do not take it more often than directed. Take all of your medicine as directed even if you think your are better. Do not skip doses or stop your medicine early. Talk to your manual plate filler regarding the use of this medicine in children. While this drug may be prescribed for children as young as 6 months for selected conditions, precautions do apply. What side effects may I notice from receiving this medicine? Side effects that you should report to your doctor or health healthcare financial analyst as soon as possible: allergic reactions like skin rash, itching or hives, swelling of the face, lips, or tongue bloody or watery diarrhea difficulty breathing or wheezing dizziness fever pain or trouble passing urine or change in the amount of urine redness, blistering, peeling or loosening of the skin, including inside the mouth seizures unusual bleeding or bruising unusually weak or tired yellowing of the eyes or skin Side effects that usually do not require medical attention (report to your doctor or health healthcare financial analyst if they continue or are bothersome): diarrhea headache genital or anal irritation loss of appetite nausea, vomiting stomach pain, upset, or gas What may interact with this medicine? aspirin and aspirin-like medicines carbamazepine medicines that treat or prevent blood clots like warfarin What if I miss a dose? If you miss a dose, take it as soon as you can. If it is almost time for your next dose, take only that dose. Do not take double or extra doses. Where should I keep my medicine? Keep out of the reach of children. Store at room temperature between 20 and 25 degrees C (68 and 77 degrees F). Throw away any unused medicine after the expiration date. What should I tell my health care provider before I take this medicine? They need to know if you have any of these conditions: bleeding problems kidney disease stomach or intestine problems (especially colitis) an unusual or allergic reaction to cefixime, other cephalosporin or penicillin antibiotics, other foods, dyes or preservatives or trying to get breast-feeding What should I watch for while using this medicine? Tell your doctor or health healthcare financial analyst if your symptoms do not improve or if you get new symptoms. Your doctor will monitor your condition and blood work as needed. Do not treat diarrhea with over the counter products. Contact your doctor if you have diarrhea that lasts more than 2 days or if it is severe and watery. This medicine can interfere with some urine glucose and some urine ketone tests. If you use such tests, talk with your health healthcare financial analyst. If you are being treated for a sexually transmitted disease, avoid sexual contact until you have finished your treatment. Having sex can infect your sexual partner. You have been given the following additional information: Pyelonephritis, Female (Adult) Ondansetron Oral disintegrating tablet Cefixime Oral tablet (Electronically signed by Dane Boggs Dr. 06/10/2017 2:25)
--- NOTE | 2017-06-10 02:25 | ED MAR SUMMARY ---
..... Medication Administration Record [facility] [address] [address] Patient: CADY COOMBS Visit ID: [id number] 61y, F Weight: 84.3 kg Height/Length: 64 in BMI: 31.9 ALLERGIES: Codeine, Morphine and Related Given 19:39 06/09/2017 Jose Alberto Mendoza RNoriN. Medication Administered: ZOFRAN [IVP] (ONDANSETRON HCL), Dose: 4 mg IVP over 2 minute(s), Site: #1 right forearm. Medication Ordered: Zofran IV 4 mg (NOW). Start 20:20 06/09/2017 Jose Alberto Mendoza R.N., Stop 23:28 06/09/2017 Jose Alberto Mendoza R.N. Medication Administered: IV NS (SALINE), Dose: IV Fluids over 4 hour(s), Rate: 150 mL/hr, Dispensed: 1000 mL bag, Site: #1 right forearm. Medication Ordered: IV NS : initial bolus none -, then 150 mL/hr for 4h (NOW); Routine. Start 21:59 06/09/2017 Jose Alberto Mendoza, R.N., Stop 22:21 06/09/2017 Jose Alberto Mendoza, R.N. Medication Administered: ROCEPHIN [IVPB] (CEFTRIAXONE SODIUM), Dose: 2 gm IVPB over 20 minute(s), Rate: 150 mL/hr, Dispensed: 50 mL bag, Site: #1 right forearm. Medication Ordered: Rocephin IV 2 gm/50mL (NOW).
--- NOTE | 2017-06-10 02:25 | ED MED RECONCILIATION SUMMARY ---
Patient: CADY COOMBS Medication Reconciliation Report [facility] VisitID: [id number] [address] [place] [address] 61y, F Registration Date/Time: 06/09/2017 Weight: 84.3 kg Height/Length: 64 in. BMI: 31.9 ALLERGIES: Codeine, Morphine and Related The patient's Home Medications are listed below: CONTINUE TAKING THE FOLLOWING MEDICATIONS: Albuterol Sulfate HFA Inhalation (108 (90 Base) mcg/act) Budesonide aresol powder 2 puffs, 2x a day Budesonide ER Oral Cetirizine HCl Oral 10 mg, daily Cimetidine Oral Fluticasone Propionate Nasal (50 mcg/act), daily Naproxen Oral (500 mg) 1 tablet, 2x a day Sertraline HCl Oral (100 mg) 1 tablet, daily Tessalon Perles Oral (100 mg), 3x a day TraZODone HCl Oral (100 mg) 0.5-1.5 tabs, at bedtime Triamcinolone Acetonide External, 2x a day The source(s) of the original Home Medication information: other The following Medications were given to the patient in the Emergency Department: Zofran [IVP] IVP 4 mg, administered: 06/09/2017 7:39:00 PM IV NS IV Fluids bolus 0, then 150 mL/hr, administered: 06/09/2017 8:20:00 PM Rocephin [IVPB] IVPB bolus 0, then 2 gm 150 mL/hr, administered: 06/09/2017 9:59:00 PM The following Medications were prescribed to the patient: Zofran (orally disintegrating tablets) 4 mg: take 1 orally every 6 hours as needed for nausea and vomiting. Dispense ten (10). Substitution is permissible. -- Dane Boggs Dr. Suprax 400 mg: take 1 tab orally every day. No refills. Substitution is permissible.(for 14 days) -- Dane Boggs Dr.
--- NOTE | 2017-06-10 02:25 | ED MAR SUMMARY ---
..... Medication Administration Record [facility] [address] [address] Patient: CADY COOMBS Visit ID: [id number] 61y, F Weight: 84.3 kg Height/Length: 64 in BMI: 31.9 ALLERGIES: Codeine, Morphine and Related Given 19:39 06/09/2017 Jose Alberto Mendoza RNoriN. Medication Administered: ZOFRAN [IVP] (ONDANSETRON HCL), Dose: 4 mg IVP over 2 minute(s), Site: #1 right forearm. Medication Ordered: Zofran IV 4 mg (NOW). Start 20:20 06/09/2017 Jose Alberto Mendoza R.N., Stop 23:28 06/09/2017 Jose Alberto Mendoza R.N. Medication Administered: IV NS (SALINE), Dose: IV Fluids over 4 hour(s), Rate: 150 mL/hr, Dispensed: 1000 mL bag, Site: #1 right forearm. Medication Ordered: IV NS : initial bolus none -, then 150 mL/hr for 4h (NOW); Routine. Start 21:59 06/09/2017 Jose Alberto Mendoza, R.N., Stop 22:21 06/09/2017 Jose Alberto Mendoaz, R.N. Medication Administered: ROCEPHIN [IVPB] (CEFTRIAXONE SODIUM), Dose: 2 gm IVPB over 20 minute(s), Rate: 150 mL/hr, Dispensed: 50 mL bag, Site: #1 right forearm. Medication Ordered: Rocephin IV 2 gm/50mL (NOW).
--- NOTE | 2017-06-10 02:25 | ED DISCHARGE INSTRUCTIONS ---
Patient: CADY COOMBS General Instructions [facility] VisitID: [id number] [place] [address] 61y, F Registration Date/Time: 06/09/2017 Acute pyelonephritis INSTRUCTIONS Your Current Medications: CONTINUE TAKING THE FOLLOWING MEDICATIONS: Albuterol Sulfate HFA Inhalation : Aerosol Solution 108 (90 Base) mcg/act, prn. Budesonide aresol powder* : 2 puffs 2x a day. Budesonide ER Oral. Cetirizine HCl Oral : 10 mg daily. Cimetidine Oral. Fluticasone Propionate Nasal : Suspension 50 mcg/act, daily. Naproxen Oral : Tablet 500 mg, 1 tablet 2x a day, prn. Sertraline HCl Oral : Tablet 100 mg, 1 tablet daily. Tessalon Perles Oral : Capsule 100 mg, 3x a day, prn. TraZODone HCl Oral : Tablet 100 mg, 0.5-1.5 tabs at bedtime. Triamcinolone Acetonide External : 2x a day. Prescription Medications: Zofran (orally disintegrating tablets) 4 mg: take 1 orally every 6 hours as needed for nausea and vomiting. Dispense ten (10). Substitution is permissible. Suprax 400 mg: take 1 tab orally every day. No refills. Substitution is permissible. (for 14 days) Follow-up: Follow up with your doctor in about three days. Call for an appointment. Screening today revealed the patient's blood pressure to be in the normal range. ADDITIONAL INFORMATION Kidney Infection [Adult, Female] An infection of the kidney is also called "pyelonephritis". It usually starts as a bladder infection ("cystitis") which spreads to the kidneys. Pyelonephritis is more serious than a bladder infection. It can cause severe illness if not treated properly. The usual symptoms include an aching pain in the back, side or lower abdomen. Other symptoms may include fever, chills, nausea, vomiting, an urge to urinate and a burning sensation when passing urine. Home Care: Stay home from work or school. Rest in bed until your fever breaks and you are feeling better. Drink lots of fluid (at least 6-8 glasses a day, unless you must restrict fluids for other medical reasons). This will force the medicine into your urinary system and flush the bacteria out of your body. Avoid sexual intercourse until you have finished all of your medicine and your symptoms have gone away. Avoid caffeine, alcohol and spicy foods which may irritate the kidney and bladder. You may use acetaminophen (Tylenol) or ibuprofen (Motrin, Advil) to control pain, unless another pain medicine was prescribed. [NOTE: If you have chronic liver or kidney disease or ever had a stomach ulcer or GI bleeding, talk with your doctor before using these medicines.] Follow Up with your doctor or as advised by our staff for a repeat urine test in 10 days. This will ensure that your infection is fully cleared. [NOTE: If you had an X-ray or CT scan, it will be reviewed by a specialist. You will be notified of any new findings that may affect your care.] Get Prompt Medical Attention if any of the following occur: Fever over 100.4F (38.0C) after 48 hours of treatment No improvement by the third day of treatment Increasing back or abdominal pain Repeated vomiting or inability to take oral medicine Weakness, dizziness or fainting Ondansetron Oral disintegrating tablet What is this medicine? ONDANSETRON (on TATYANA se jared) is used to treat nausea and vomiting caused by chemotherapy. It is also used to prevent or treat nausea and vomiting after surgery. How should I use this medicine? These tablets are made to dissolve in the mouth. Do not try to push the tablet through the foil backing. With dry hands, peel away the foil backing and gently remove the tablet. Place the tablet in the mouth and allow it to dissolve, then swallow. While you may take these tablets with water, it is not necessary to do so. Talk to your mammal control agent regarding the use of this medicine in children. Special care may be needed. What side effects may I notice from receiving this medicine? Side effects that you should report to your doctor or health caretaker grounds as soon as possible: allergic reactions like skin rash, itching or hives, swelling of the face, lips, or tongue breathing problems dizziness fast or irregular heartbeat feeling faint or lightheaded, falls fever and chills swelling of the hands and feet tightness in the chest Side effects that usually do not require medical attention (report to your doctor or health caretaker grounds if they continue or are bothersome): constipation or diarrhea headache What may interact with this medicine? Do not take this medicine with any of the following medications: -apomorphine -cisapride -dofetilide -dronedarone -pimozide -thioridazine -ziprasidone This medicine may also interact with the following medications: -carbamazepine -phenytoin -rifampicin -tramadol -other medicines that prolong the QT interval (cause an abnormal heart rhythm) What if I miss a dose? If you miss a dose, take it as soon as you can. If it is almost time for your next dose, take only that dose. Do not take double or extra doses. Where should I keep my medicine? Keep out of the reach of children. Store between 2 and 30 degrees C (36 and 86 degrees F). Throw away any unused medicine after the expiration date. What should I tell my health care provider before I take this medicine? They need to know if you have any of these conditions: heart disease history of irregular heartbeat liver disease low levels of magnesium or potassium in the blood an unusual or allergic reaction to ondansetron, granisetron, other medicines, foods, dyes, or preservatives or trying to get breast-feeding What should I watch for while using this medicine? Check with your doctor or health caretaker grounds as soon as you can if you have any sign of an allergic reaction. Cefixime Oral tablet What is this medicine? CEFIXIME (sef IX eem) is a cephalosporin antibiotic. It is used to treat certain kinds of bacterial infections. It will not work for colds, flu, or other viral infections. How should I use this medicine? Take this medicine by mouth with a glass of water. Follow the directions on the prescription label. You can take it with or without food. If it upsets your stomach, take it with food. Take your medicine at regular intervals. Do not take it more often than directed. Take all of your medicine as directed even if you think your are better. Do not skip doses or stop your medicine early. Talk to your mammal control agent regarding the use of this medicine in children. While this drug may be prescribed for children as young as 6 months for selected conditions, precautions do apply. What side effects may I notice from receiving this medicine? Side effects that you should report to your doctor or health caretaker grounds as soon as possible: allergic reactions like skin rash, itching or hives, swelling of the face, lips, or tongue bloody or watery diarrhea difficulty breathing or wheezing dizziness fever pain or trouble passing urine or change in the amount of urine redness, blistering, peeling or loosening of the skin, including inside the mouth seizures unusual bleeding or bruising unusually weak or tired yellowing of the eyes or skin Side effects that usually do not require medical attention (report to your doctor or health caretaker grounds if they continue or are bothersome): diarrhea headache genital or anal irritation loss of appetite nausea, vomiting stomach pain, upset, or gas What may interact with this medicine? aspirin and aspirin-like medicines carbamazepine medicines that treat or prevent blood clots like warfarin What if I miss a dose? If you miss a dose, take it as soon as you can. If it is almost time for your next dose, take only that dose. Do not take double or extra doses. Where should I keep my medicine? Keep out of the reach of children. Store at room temperature between 20 and 25 degrees C (68 and 77 degrees F). Throw away any unused medicine after the expiration date. What should I tell my health care provider before I take this medicine? They need to know if you have any of these conditions: bleeding problems kidney disease stomach or intestine problems (especially colitis) an unusual or allergic reaction to cefixime, other cephalosporin or penicillin antibiotics, other foods, dyes or preservatives or trying to get breast-feeding What should I watch for while using this medicine? Tell your doctor or health caretaker grounds if your symptoms do not improve or if you get new symptoms. Your doctor will monitor your condition and blood work as needed. Do not treat diarrhea with over the counter products. Contact your doctor if you have diarrhea that lasts more than 2 days or if it is severe and watery. This medicine can interfere with some urine glucose and some urine ketone tests. If you use such tests, talk with your health caretaker grounds. If you are being treated for a sexually transmitted disease, avoid sexual contact until you have finished your treatment. Having sex can infect your sexual partner. You have been given the following additional information: Pyelonephritis, Female (Adult) Ondansetron Oral disintegrating tablet Cefixime Oral tablet (Electronically signed by Dane Boggs Dr. 06/10/2017 2:25)
== END 2017-06-09 23:35 | disposition home or self-care (01) ==
LOC: ED SRH 18:19
DX: N10 Acute pyelonephritis (principal); B96.20 Unspecified Escherichia coli [E. coli] as the cause of diseases classified elsewhere; J45.909 Unspecified asthma, uncomplicated; Z79.899 Other long term (current) drug therapy; Z88.5 Allergy status to narcotic agent
CPT/HCPCS: 90004; 90025; 90065; 90074; 90100; 90148; 90469; 90616; 92031; 92610; 92720; 95059